=== PATIENT | female | born 1985 | race African-American/Black ===

== ENCOUNTER 2021-08-13 10:08 | Inpatient (IN) ==
[2021-08-13] MEDS ORDERED: LACTATED RINGERS 1,000 ML IV SCH ×2 (11:00→18:00)
[2021-08-13] MEDS ORDERED: ceFAZolin 2,000 MG/50 ML DUPLEX IV ONE (11:15)
[2021-08-13] MEDS ORDERED: FAMOTIDINE 20 MG/2 ML VIAL IV ONE (11:15)
[2021-08-13] MEDS ORDERED: CITRIC ACID/SODIUM CITRATE 30 ML UDCUP PO ONE (11:15)
[2021-08-13] MEDS ORDERED: OXYTOCIN/LR 30 UNIT/1,000 ML BAG IV ONE (11:15)
[2021-08-13] MEDS ORDERED: OXYTOCIN 10 UNIT/ML VIAL IM ONE (11:15)
[2021-08-13 11:32] LABS: Basophils % 0.4 % (0.0-0.8); Eosinophils # 0.1 10*3/uL (0.0-0.87); Eosinophils % 2.6 % (0.00-10.9); Hematocrit 34.1 VOL% (35.7-47.0); Hemoglobin 10.8 GM/DL (12.0-16.0); Immature Granulocytes % 0.4 %; Immature Granulocytes Absolute 0.02 #; Lymphocytes # 1.2 10*3/uL (1.4-4.0); Lymphocytes % 25.1 % (21.3-54.2); Mean Corpuscular HGB Conc 31.7 GM/DL (32-36); Mean Corpuscular Volume 93.2 FL (87-102); Mean Platelet Volume 12.2 FL (9.6-12.0); Monocytes % 13.7 % (1.7-12.7); Neutrophils % 57.8 % (38.7-73.9); Platelet Count 121 T/CUMM (130-400); Red Blood Count 3.66 MC/CUMM (3.8-5.5); Red Cell Distribution Width 16.9 % (9.3-17.3); White Blood Count 4.7 T/CUMM (4-12)
[2021-08-13 12:04] LABS: Albumin 2.6 G/DL (3.4-5.0); Bilirubin,Total 0.7 MG/DL (0.20-1.00); Calcium 9.1 MG/DL (8.5-10.1); Osmolality,Calculated 274.7 MOS/KG (273-304); Potassium 3.9 MMOL/L (3.5-5.1); Total Protein 6.3 G/DL (6.4-8.2)
[2021-08-13 17:08] LABS: Amorphous Crystals,Urine Occasional /HPF (Few); Bacteria,Urine Occasional /HPF (Few); Mucus,Urine Occasional /LPF (Occasional); RBC,Urine <1 /HPF (0-4); Squamous Epithelial Cell,Urine Occasional /HPF (0-10); Urine Appearance Clear (Clear); Urine Color Yellow (Yellow); Urine pH 5.5 (4.5-8.0)
[2021-08-13 17:09] LABS: Bilirubin,Urine Negative (Negative); Blood, Urine Negative (Negative); Glucose,Urine (UA) Negative (Negative); Ketones,Urine 40 mg/dL (Negative); Nitrite,Urine Negative (Negative); Protein,Urine Negative (Negative); Urine Specific Gravity 1.015 (1.001-1.035); Urine Urobilinogen 0.2 eU/dL (<2.0)
[2021-08-13 17:24] LABS: Cord Venous Blood HCO3 20.2 MMOL/L; Cord Venous Blood PCO2 40.4 MMHG; Cord Venous Blood PO2 30.8
[2021-08-13] MEDS ORDERED: IBUPROFEN 800 MG TABLET PO PRN (17:51)
[2021-08-13] MEDS ORDERED: RHO(D) IMMUNE GLOBULIN 300 MCG SYRINGE IM ONE (17:51)
[2021-08-13] MEDS ORDERED: OXYTOCIN/LR 20 UNIT/1,000 ML BAG IV ONE (17:51)
[2021-08-13] MEDS ORDERED: ONDANSETRON 4 MG/2 ML VIAL IV PRN (17:51)
[2021-08-13] MEDS ORDERED: SIMETHICONE CHEW 80 MG TABLET PO PRN (17:51)
[2021-08-13] MEDS ORDERED: ACETAMINOPHEN 325 MG TABLET PO PRN (17:51)
[2021-08-13] MEDS: DOCUSATE SODIUM 100 MG CAPSULE PO SCH (22:06)
[2021-08-14] MEDS ORDERED: ACETAMINOPHEN 500 MG TABLET PO SCH (00:01)
[2021-08-14] MEDS ORDERED: KETOROLAC 30 MG/1 ML VIAL IV SCH (00:01)
[2021-08-14] MEDS: KETOROLAC 30 MG/1 ML VIAL IV SCH ×3 (01:03→19:34)
[2021-08-14] MEDS: ACETAMINOPHEN 500 MG TABLET PO SCH ×2 (01:06→06:58)
[2021-08-14 01:16] LABS: Basophils % 0.4 % (0.0-0.8); Eosinophils # 0.1 10*3/uL (0.0-0.87); Eosinophils % 1.4 % (0.00-10.9); Hematocrit 32.4 VOL% (35.7-47.0); Hemoglobin 10.3 GM/DL (12.0-16.0); Immature Granulocytes % 0.4 %; Immature Granulocytes Absolute 0.02 #; Lymphocytes # 1.2 10*3/uL (1.4-4.0); Lymphocytes % 20.8 % (21.3-54.2); Mean Corpuscular HGB Conc 31.8 GM/DL (32-36); Mean Corpuscular Volume 93.1 FL (87-102); Mean Platelet Volume 12.6 FL (9.6-12.0); Monocytes % 12.3 % (1.7-12.7); Neutrophils % 64.7 % (38.7-73.9); Platelet Count 107 T/CUMM (130-400); Red Blood Count 3.48 MC/CUMM (3.8-5.5); Red Cell Distribution Width 16.9 % (9.3-17.3); White Blood Count 5.6 T/CUMM (4-12)
[2021-08-14 02:11] LABS: Platelet Estimate Decreased
[2021-08-14 02:13] LABS: Polychromasia 1+
[2021-08-14] MEDS ORDERED: ACETAMINOPHEN 325 MG TABLET PO PRN (05:09)
[2021-08-14] MEDS: DOCUSATE SODIUM 100 MG CAPSULE PO SCH ×2 (09:04→20:24)
[2021-08-14] MEDS: MULTIVITAMIN (PRENATAL) TABLET PO SCH (09:04)
[2021-08-14] MEDS: METOCLOPRAMIDE 10 MG TABLET PO SCH ×3 (09:04→20:26)
[2021-08-14] MEDS: MAGNESIUM HYDROXIDE SUSP 30 ML UDCUP PO PRN ×2 (09:04→20:24)
[2021-08-14 09:06] LABS: Basophils % 0.5 % (0.0-0.8); Eosinophils # 0.1 10*3/uL (0.0-0.87); Eosinophils % 2.2 % (0.00-10.9); Hematocrit 30.3 VOL% (35.7-47.0); Hemoglobin 9.8 GM/DL (12.0-16.0); Immature Granulocytes % 0.4 %; Immature Granulocytes Absolute 0.02 #; Lymphocytes # 0.9 10*3/uL (1.4-4.0); Lymphocytes % 16.9 % (21.3-54.2); Mean Corpuscular HGB Conc 32.3 GM/DL (32-36); Mean Corpuscular Volume 91.5 FL (87-102); Mean Platelet Volume 12.4 FL (9.6-12.0); Monocytes % 14.2 % (1.7-12.7); Neutrophils % 65.8 % (38.7-73.9); Platelet Count 106 T/CUMM (130-400); Red Blood Count 3.31 MC/CUMM (3.8-5.5); Red Cell Distribution Width 16.7 % (9.3-17.3); White Blood Count 5.5 T/CUMM (4-12)
[2021-08-15] MEDS: METOCLOPRAMIDE 10 MG TABLET PO SCH ×2 (00:22→08:13)
[2021-08-15] MEDS: MAGNESIUM HYDROXIDE SUSP 30 ML UDCUP PO PRN (08:13)
[2021-08-15] MEDS: MULTIVITAMIN (PRENATAL) TABLET PO SCH (08:13)
[2021-08-15] MEDS: DOCUSATE SODIUM 100 MG CAPSULE PO SCH (08:14)
[2021-08-15] MEDS ORDERED: MAGNESIUM CITRATE 300 ML BOTTLE PO ONE (08:45)
[2021-08-15 11:46] VITALS: BP 133/82
== END 2021-08-15 13:55 | disposition home or self-care (01) | DRG 788 ==
LOC: N.LD 10:08 → N.OB 22:40
PROVIDERS: ADMIT Obstetrics & Gynecology; ATTEND Obstetrics & Gynecology
PROC: LDCSECT (ICD-10-PCS; 2021-08-13 10:00)